=== PATIENT | male | born 1940 | race Caucasian/White ===

== ENCOUNTER 2016-11-28 10:58 | Emergency (ER) | payer OTHER ==
--- NOTE | 2016-11-28 11:26 | PROVIDER DOCUMENTATION ---
HPI-Cardiopulmonary Arrest - General Chief Complaint: Full Arrest Stated Complaint: cardiac arrest Time Seen by Provider: 11/28/16 10:58 Source: patient Allergies/Adverse Reactions: Allergies Allergy/AdvReac Type Severity Reaction Status Date / Time No Known Allergies Allergy Verified 10/16/16 19:14 Home Medications: Home Medication List Medication Instructions Recorded Confirmed Last Taken Type Allopurinol 100 mg PO BID 07/23/14 10/16/16 10/16/16 11:00 History Amlodipine [Norvasc] 5 mg PO DAILY 07/23/14 10/16/16 10/16/16 11:00 History Benazepril/Hydrochlorothiazide 1 each PO BID 07/23/14 10/16/16 10/16/16 11:00 History [Benazepril-Hctz 20-12.5 mg Tab] Furosemide 40 mg PO BID 07/23/14 10/16/16 10/16/16 11:00 History Omeprazole 20 mg PO DAILY 07/23/14 10/16/16 10/16/16 11:00 History Potassium Chloride 20 meq PO DAILY 07/23/14 10/16/16 10/16/16 11:00 History SIMVAstatin [Zocor] 20 mg PO QHS 07/23/14 10/16/16 10/15/16 21:45 History Triazolam 1.5 tab PO HS 07/23/14 10/16/16 10/15/16 21:45 History Famotidine [Pepcid] 20 mg PO DAILY #20 tablet 10/16/16 Unknown Rx Ibuprofen [Motrin] 400 mg PO Q6H PRN PRN #60 tablet 10/16/16 Unknown Rx Metformin [Glucophage] 500 mg PO BID CC 10/16/16 10/16/16 10/16/16 11:00 History Rivaroxaban [Xarelto] 10 mg PO DAILY 10/16/16 10/16/16 10/15/16 21:45 History - History of Present Illness-C/P Arrest Initial Comments: Pt is 76 y/o M presents to the ED via EMS with cardiopulmonary arrest. EMS states arriving at 0950 and EMS states Pt was face down in between bed and dresser. EMS states Pt was warm and pink on arrival. EMS states Pt was in v fib on arrival. EMS gave Pt 2 lido, 7 epi, 450 mg of amio, and 2 bicarb. EMS states blood sugar of > than 500. EMS states placing tube prior to arrival. Rosa was in place on Pt on arrival. Rosa was stopped at 1051, no pulse found and rosa resumed. Rosa stopped at 1054 for placement and then resumed. Pt was given epi at 1054. Pt was given calcium at 1055. Rosa stopped at 1056 no pulse found and rosa resumed. Pt was shocked at 1056 and rosa off and slight pulse found. Pt was given epi at 1058. Rosa was stopped at 1058 no pulse found. Pt was shocked at 1059 and rosa was stopped and no pulse found. Pt was given bicarb at 1100. Rosa was stopped at 1102 and no pulse found. Reason for Code Blue?: full arrest Witnessed arrest?: Yes Noted by:: other (EMS) Bystander CPR?: No CPR initiated before doctor arrival?: Yes (by EMS ) Down-time before ACLS?: unknown Initial Findings: unresponsive, V. Fib Treatment initiated prior to doctor arrival?: Initiated CPR/thumper (thumper), Initiated epinephrine #mg (7), Initiated amiodarone (450 mg), Initiated sodium bicarb # amps (2), Initiated other (lidocaine times 2) Similar Symptoms Previously?: No Recently seen or treated by another doctor?: No - Pre-hospital Treatment EMS Initial Findings:: unresponsive Pre-hospital Treatment: Initiated intubated, Initiated CPR, Initiated epinephrine (7), Initiated amiodarone (450 mg), Initiated other (lidocaine 2 and 2 bicarb) - Pronouncement CPR discontinued. Patient pronounced at: 11:12 Family notified?: Yes Private provider notified?: Yes Review of Systems - Adult - REVIEW OF SYSTEMS - ADULT ROS:: unobtainable per condition Constitutional: reports: no symptoms reported Eyes: reports: no symptoms reported Ears, Nose, Mouth & Throat: reports: no symptoms reported Cardiovascular: reports: no symptoms reported Respiratory: reports: no symptoms reported Gastrointestinal: reports: no symptoms reported Genitourinary: reports: no symptoms reported Musculoskeletal: reports: no symptoms reported Integumentary: reports: no symptoms reported Neurological: reports: no symptoms reported Psychiatric: reports: no symptoms reported Endocrine: reports: no symptoms reported Hematologic/Lymphatic: reports: no symptoms reported Allergic/Immunologic: reports: no symptoms reported All Other Systems: Reviewed and Negative Past History - Adult - PAST MEDICAL HISTORY-ADULT Review of Records: reports: Nursing Assessment Review, Medications Reviewed, Social history reviewed & non-contributory. 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 negative: PERRL/EOMI (pupils nonreactive to light) - HEAD, EARS, NOSE, MOUTH & THROAT HENMT: other (tracheal tube in place) - NECK Neck: supple - RESPIRATORY Respiratory: other (tube in place and respirations give via ambu bag) - CARDIOVASCULAR Cardiovascular: other (pulse with rosa compression) - GASTROINTESTINAL (ABDOMEN) Abdominal Exam: distended. negative: guarding, rigid, rebound - LYMPHATIC Lymphatic: no adenopathy - MUSCULOSKELETAL Back Exam: negative: kyphosis, lordosis, swelling Extremity: slow capillary refill. negative: calf tenderness, pedal edema - SKIN Integumentary: pallor - NEUROLOGIC Neurologic: negative: facial droop - PSYCHIATRIC Psych/Mental Status: negative: normal mood/affect, normal thought content, normal thought process Progress - PLAN OF CARE/RESULTS Progress/Plan/Lab Results: Laboratory Tests 11/28/16 10:55 Specimen Type ARTERIAL Sample Site R FEMORAL pH < 6.80 L* pCO2 45 pO2 64 Oxyhemoglobin 74.0 L* ABG O2 Sat (Calculated) 4.7 L ABG O2 Saturation 76.4 L ABG Carboxyhemoglobin 1.40 ABG Methemoglobin 1.8 H Greyson Test NO A-a O2 Difference 593.0 Total Hemoglobin 4.4 L Lactate 19.00 H* Liter Flow 15.0 Blood Gas Modality AMBU BAG FiO2 % 100.0 Orders Category Date Time Status ABG [RESP] Routine Lab 11/28/16 10:55 Completed Vital Signs - 24 hr 11/28/16 11:00 O2 Sat by Pulse 88 L Oximetry Departure - Departure Time of Disposition Order: 13:12 DIAGNOSIS: Cardiopulmonary arrest Disposition: 20 Certified Medical Emergency: Urgent Condition: Attestation - Scribe Verification/Attestation Scribe:: Kelly Streeter Acting as Scribe for:: Tim Kate Scribe documention review:: This chart was documented by a scribe and accurately reflects the service the provider performed and the decisions made by the provider.
[2016-11-28 11:32] LABS: BLOOD TYPE ARTERIAL; METHB 1.8 % (0.0-1.5); O2(CT) 4.7 mL/dL (15.0-23.0); PCO2(98.6) 45 mmHg (35-45); PO2(98.6) 64 mmHg (60-100); SAMPLE BLOOD; SAO2 76.4 % (95.0-100.0); THB 4.4 g/dL (11.5-17.4)
[2016-11-28 11:35] LABS: DRAW SITE R FEMORAL; MODALITY AMBU BAG
[2016-11-28 11:37] LABS: ALLEN TEST NO; pH(98.6) < 6.80 (7.35-7.45)
[2016-11-28] MEDS ORDERED: EPINEPHRINE SYRINGE ONE (18:00)
[2016-11-28] MEDS ORDERED: CALCIUM CHLORIDE SYRINGE ONE (18:00)
[2016-11-28] MEDS ORDERED: SODIUM BICARBONATE 8.4% ONE (18:00)
== END 2016-11-28 13:25 | disposition expired ==
LOC: P.ED 10:58
DX: I46.9 Cardiac arrest, cause unspecified (principal); I49.01 Ventricular fibrillation; R14.0 Abdominal distension (gaseous); R23.1 Pallor; I10 Essential (primary) hypertension; E11.9 Type 2 diabetes mellitus without complications; E66.9 Obesity, unspecified; Z79.01 Long term (current) use of anticoagulants; Z79.899 Other long term (current) drug therapy; Z95.1 Presence of aortocoronary bypass graft; Z87.891 Personal history of nicotine dependence
CPT/HCPCS: 82805; 92950; 96374; 96375; J0171